=== PATIENT | female | born 1970 | race Caucasian/White ===

== ENCOUNTER 2016-11-16 13:21 | Emergency (ER) | payer OTHER ==
[~2016-11-16] VITALS: Ht 170.2 cm; Wt 74.0 kg
[2016-11-16 13:28] VITALS: BP 146/85; PULSE 90; RESP 16; TEMP 98.1; O2SAT 100
[2016-11-16] MEDS ORDERED: SODIUM CHLORIDE 0.9% FLUSH 10 ML FLUSH IVF PRN (13:45)
[2016-11-16 13:52] VITALS: BP 128/77; PULSE 95; RESP 16; O2SAT 100
[2016-11-16] MEDS ORDERED: PRED10PA PO (13:54)
[2016-11-16] MEDS ORDERED: AUGM875T3 PO (13:54)
[2016-11-16 14:06] LABS: AUTOMATED NEUTROPHIL # 8.4 TH/MM3 (1.8-7.7); BASOPHIL # 0.1 TH/MM3 (0-0.2); BASOPHIL % 0.8 % (0.0-2.0); EOSINOPHIL % 0.1 % (0.0-4.0); HEMATOCRIT 43.2 % (35.0-46.0); HEMO FLAGS DIFF FINAL; LYMPH % 10.8 % (9.0-44.0); LYMPHOCYTE # 1.1 TH/MM3 (1.0-4.8); MEAN CELL VOLUME 87.3 FL (80.0-100.0); MEAN CORPUSCULAR HEMOGLOBIN 28.6 PG (27.0-34.0); MEAN CORPUSCULAR HGB CONC 32.8 % (32.0-36.0); NEUT % 87.3 % (16.0-70.0); PLATELET COUNT 424 TH/MM3 (150-450); RED BLOOD COUNT 4.95 MIL/MM3 (4.00-5.30); WHITE BLOOD COUNT 9.7 TH/MM3 (4.0-11.0)
[2016-11-16 14:15] LABS: POTASSIUM 4.7 MEQ/L (3.5-5.1)
[2016-11-16] MEDS ORDERED: SODIUM CHLOR 0.9% 1000 ML INJ 1,000 ML IV ONE (14:15)
--- NOTE | 2016-11-16 14:15 | PD ---
HPI . Weakness and fatigue Chief Complaint: General Weakness Time Seen by Provider: 13:36 Travel History International Travel<30 days: No Contact w/Intl Traveler<30days: No Traveled to known affect area: No History of Present Illness HPI This patient presents complaining with weakness and dizziness for about the week. She states that she was seen at an urgent care facility 5 days ago and was diagnosed with pneumonia. She was initially treated with Zithromax and prednisone. She has finished the Zithromax. She continues to do very poorly. She states that the urgent care got some test results back and subsequently place her on Augmentin. She has just started the Augmentin. She states that she is not feeling any better despite the completed course of Zithromax and current Augmentin. She believes that she should be feeling better by now. She subsequently presents to us today for further evaluation. She does report some shortness of breath and dyspnea on exertion. She reports occasional subjective fevers and chills. She has a mild cough. She has a mild headache. She states that she is not having any trouble with oral intake and has maintained normal urinary output. [facility] Past Medical History Medical History: Denies Significant Hx Diminished Hearing: No Influenza Vaccination: No ?: Not LMP: OCTOBER 19, 2016 Past Surgical History Appendectomy: Yes Social History Alcohol Use: Yes Tobacco Use: No Allergies-Medications (Allergen,Severity, Reaction): Coded Allergies: No Known Allergies (Verified Allergy, Unknown, 11/16/16) Reported Meds & Prescriptions Reported Meds & Active Scripts Active Reported Prednisone (21) 10 mg tab Dose Pack (Prednisone) 10 Mg Pack 10 Mg PO DIRECTED Review of Systems Except as stated in HPI: all other systems reviewed are Neg General / Constitutional: Positive: Fever, Chills HENT: Positive: Headaches Cardiovascular: No: Chest Pain or Discomfort Respiratory: Positive: Cough (she states her cough is very mild and has not required a cough suppressant), Shortness of Breath Gastrointestinal: Positive: Nausea, No: Vomiting, Diarrhea, Loss of Appetite Genitourinary: No: Decreased Urinary Output Physical Exam Narrative Vital Signs Date Time Temp Pulse Resp B/P (MAP) Pulse Ox O2 Delivery O2 Flow Rate FiO2 11/16/16 14:16 90 16 129/74 (92) 109 16 166/75 (105) 125 18 179/89 (119) 11/16/16 13:52 95 16 128/77 (94) 100 Room Air 11/16/16 13:28 98.1 90 16 146/85 (105) 100 GENERAL: This is a healthy-appearing woman who looks like she doesn't feel very well today. SKIN: Warm and dry. HEAD: Atraumatic. Normocephalic. EYES: Pupils equal and round. ENT: No nasal bleeding or discharge. Mucous membranes pink and moist. NECK: Trachea midline. Neck is supple. CARDIOVASCULAR: Regular rate and rhythm. Heart sounds are normal. RESPIRATORY: No accessory muscle use. Lungs are clear with full air movement throughout. GASTROINTESTINAL: Abdomen soft, non-tender, nondistended. MUSCULOSKELETAL: No obvious deformities. No edema. NEUROLOGICAL: Awake and alert. No obvious cranial nerve deficits. Motor grossly within normal limits. Normal speech. PSYCHIATRIC: Appropriate mood and affect; insight and judgment normal. Data Data Last Documented VS Vital Signs Date Time Temp Pulse Resp B/P (MAP) Pulse Ox O2 Delivery O2 Flow Rate FiO2 11/16/16 15:19 11/16/16 14:16 90 16 109 16 125 18 11/16/16 13:52 100 Room Air 11/16/16 13:28 98.1 Orders Orders Electrocardiogram (11/16/16 13:36) Basic Metabolic Panel (Bmp) (11/16/16 13:36) Complete Blood Count With Diff (11/16/16 13:36) Chest, Single Ap (11/16/16 13:36) Ecg Monitoring (11/16/16 13:36) Iv Access Insert/Monitor (11/16/16 13:36) Oximetry (11/16/16 13:36) Sodium Chloride 0.9% Flush (Ns Flush) (11/16/16 13:45) Orthostatic Vital Signs (11/16/16 13:36) Sodium Chlor 0.9% 1000 Ml Inj (Ns 1000 M (11/16/16 14:15) Labs Laboratory Tests Test 11/16/16 14:00 White Blood Count 9.7 TH/MM3 Red Blood Count 4.95 MIL/MM3 Hemoglobin 14.2 GM/DL Hematocrit 43.2 % Mean Corpuscular Volume 87.3 FL Mean Corpuscular Hemoglobin 28.6 PG Mean Corpuscular Hemoglobin Concent 32.8 % Red Cell Distribution Width 13.0 % Platelet Count 424 TH/MM3 Mean Platelet Volume 9.1 FL Neutrophils (%) (Auto) 87.3 % Lymphocytes (%) (Auto) 10.8 % Monocytes (%) (Auto) 1.0 % Eosinophils (%) (Auto) 0.1 % Basophils (%) (Auto) 0.8 % Neutrophils # (Auto) 8.4 TH/MM3 Lymphocytes # (Auto) 1.1 TH/MM3 Monocytes # (Auto) 0.1 TH/MM3 Eosinophils # (Auto) 0.0 TH/MM3 Basophils # (Auto) 0.1 TH/MM3 CBC Comment DIFF FINAL Differential Comment Blood Urea Nitrogen 16 MG/DL Creatinine 1.00 MG/DL Random Glucose 245 MG/DL Calcium Level 8.7 MG/DL Sodium Level 137 MEQ/L Potassium Level 4.7 MEQ/L Chloride Level 104 MEQ/L Carbon Dioxide Level 23.8 MEQ/L Anion Gap 9 MEQ/L Estimat Glomerular Filtration Rate 59 ML/MIN MDM Medical Decision Making Medical Screen Exam Complete: Yes Emergency Medical Condition: Yes Medical Record Reviewed: Yes (this patient has not been seen in our system before.) Interpretation(s) EKG shows a normal sinus rhythm with no ST segment elevation or depression. Differential Diagnosis Differential diagnosis of weakness includes but is not limited to infection, CVA , electrolyte disturbance, renal failure, hypoglycemia, UTI, ACS, acute blood loss Narrative Course This patient presents complaining of weakness. She has had recent pneumonia which was treated at an urgent care center first with Zithromax and prednisone now with Augmentin. She states she is not feeling any better despite treatment. Orthostatic vital signs were positive. A fluid bolus has been ordered. Last Impressions Chest X-Ray 11/16/16 0301 Signed Impressions: Service Date/Time: Wednesday, November 16, 2016 13:54 - CONCLUSION: Normal examination for a patient of this age. Jeison Grady MD The chest x-ray was independently viewed by me. CBC & BMP Diagram 11/16/16 14:00 Calcium Level 8.7 This patient's pneumonia appears to have cleared. I will advise her to stop the Augmentin and increase her fluids. Follow-up with her primary care provider if her symptoms persist. Diagnosis Primary Impression: Weakness Additional Impression: Dehydration Referrals: Primary Care Physician Patient Instructions: Dehydration (DC), General Instructions Additional Instructions: Stop the Augmentin Med/Other Pt SpecificInfo: Med Stopped Disposition: 01 DISCHARGE HOME Condition: Stable Lakisha Benítez MD Nov 16, 2016 14:15
[2016-11-16 14:16] VITALS: BP_SYST 129; BP_SYST 166; BP_SYST 179; BP_DIAS 74; BP_DIAS 75; BP_DIAS 89; RESP 16; RESP 18
--- NOTE | 2016-11-16 14:16 | RADRPT ---
EXAM DATE/TIME: 11/16/2016 13:54 [facility] COMPARISON: No previous studies available for comparison. INDICATIONS : Short of breath, chest pain, weak, headache, nausea MEDICAL HISTORY : None. SURGICAL HISTORY : None. ENCOUNTER: Initial ACUITY: 2 weeks PAIN SCORE: 5/10 LOCATION: Bilateral chest FINDINGS: A single view of the chest demonstrates the lungs to be symmetrically aerated without evidence of mas s, infiltrate or effusion. The cardiomediastinal contours are unremarkable. Osseous structures are intact. CONCLUSION: Normal examination for a patient of this age. Jeison Grady MD on November 16, 2016 at 14:14 Board Certified Radiologist. This report was verified electronically.
[2016-11-16 14:18] LABS: BICARBONATE 23.8 MEQ/L (21.0-32.0)
--- NOTE | 2016-11-17 14:24 | EKG ---
Date Performed: 11/16/2016 Time Performed: 14:02:43 PTAGE: 46 years EKG: Sinus rhythm POSSIBLE LEFT ATRIAL ENLARGEMENT BORDERLINE ECG NO PREVIOUS TRACING DOCTOR: Mark Bettencourt Interpretating Date/Time 11/17/2016 14:23:23
== END 2016-11-16 15:24 | disposition home or self-care (01) ==
LOC: PHED 13:21
DX: E86.0 Dehydration (principal)
CPT/HCPCS: 71010; 80048; 85025; 93005; 96360; 99285; J7030